=== PATIENT | male | born 2005 | race Caucasian/White ===

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

== ENCOUNTER → 2025-01-11 09:13 | Outpatient (BNV) | payer OTHER, SELFPAY | PROVIDERS: Emergency Provider Emergency Medicine; Visit Provider Radiology Vascular & Interventional Radiology | DX: M79.641 Pain in right hand (principal) | CPT/HCPCS: 73130 ==

== ENCOUNTER 2025-01-11 09:43 | Emergency (ER) | payer OTHER, SELFPAY ==
--- NOTE | ~2025-01-11 | XR_ITS ---
CLINICAL HISTORY: pain 3 view right hand Comparison: None provided Findings: No fractures or dislocations. No significant arthritic change. No erosions. No radiopaque foreign body. IMPRESSION: 1. No acute findings This document has been electronically signed by: Hussain Guardado MD on 01/11/2025 10:30:40
[2025-01-11 09:44] VITALS: BP 128/63; PULSE 66; RESP 16; TEMP 36.4; O2SAT 95; BMI 20.8
--- NOTE | 2025-01-11 10:30 | ED.EXTPRO ---
HPI - Extremity Problem General Chief complaint: Extremity Injury, Upper Stated complaint: r hand pain Time Seen by Provider: 01/11/25 09:56 Source: patient Mode of arrival: ambulatory Limitations: no limitations History of Present Illness ED Provider: JHONNY GOMEZ PA-C HPI Narrative: 19 year old right hand dominant male with pmhx significant for asthma presents to the ED today for evaluation of right hand pain which began after punching a metal pole a week and a half ago. Reports immediate and continued pain/swelling to the middle knuckle. Pain is exacerbated with flexing and extending his digits. Pain is sharp in character and radiates proximally into his wrist. Pain is temporarily relieved with applying ice. He has not trialed any OTC pain medication for his pain. Denies any other injury. Denies numbness/tingling/weakness. Related Data Previous Rx's ?Medication ?Instructions ?Recorded dicyclomine 10 mg capsule 10 mg PO TID PRN abdominal 05/14/22 discomfort #14 caps albuterol sulfate 90 mcg/actuation 2 puff inhalation Q4-6H PRN 07/23/23 aerosol inhaler shortness of breath or wheezing #6.7 grams prednisone 20 mg tablet 20 mg PO DAILY 4 days #4 tabs 07/23/23 prednisone 50 mg tablet 50 mg PO DAILY 5 days #5 tabs 09/02/23 azithromycin 250 mg tablet 250 mg PO DAILY 4 days #4 tabs 05/10/24 cefuroxime axetil 500 mg tablet 500 mg PO BID #14 tabs 05/10/24 albuterol sulfate 90 mcg/actuation 2 puff inhalation Q4-6H PRN 08/30/24 aerosol inhaler shortness of breath or wheezing #8.5 grams benzonatate 100 mg capsule 100 mg PO TID PRN cough #12 caps 08/30/24 prednisone 50 mg tablet 50 mg PO DAILY #4 tabs 08/30/24 Allergies Allergy/AdvReac Type Severity Reaction Status Date / Time nut - unspecified Allergy Anaphylaxis Verified 01/11/25 09:45 Review of Systems Review of Systems: Yes all other systems are reviewed and are negative PMFSH Past Medical History Attestation statement: The following information was validated with the patient. Source: old records reviewed and nursing notes reviewed Medical History Asthma Social History Social History Alcohol intake: never Advance Directives: No Advance Directives Information Provided: No Physical Exam Vital Signs: Vital Signs: Last Vital Signs Temp 97.5 F 01/11/25 09:44 Pulse 66 01/11/25 09:44 Resp 16 01/11/25 09:44 BP 128/63 01/11/25 09:44 Pulse Ox 95 01/11/25 09:44 O2 Del Method Room Air 01/11/25 09:44 BMI result Body Mass Index 20.8 Vital signs stable General: Well appearing, in no acute distress. Skin: Warm, dry, intact. No rashes or lesions. Head: Normocephalic, atraumatic. EENT: Hearing is intact b/l. Conjunctiva clear. Sclera is anicteric. PERRLA. EOM intact. Moist mucous membranes.? Cardiac: Chest wall symmetric. RRR Lungs: Normal respiratory effort without accessory muscle use. CTA bilaterally. Ext: + mild swelling noted over right 3rd MCP, no deformity. No overlying erythema, bruising or wound. Full ROM intact to all digits on right hand. Finger strength intact. Felt Tipping Machine Tender strength intact. Endorses pain on extension and flexion of right MCP. There is positive snuffbox tenderness. FROM intact to right wrist. 2+ radial pulse. Neuro: AOx3. Normal speech. Strength 5/5 intact throughout. Sensation intact to light touch. NV intact distally. Ambulating with steady gait. Course Course Course Narrative: X-rays negative for any acute fracture. He has snuffbox tenderness, concerning for scaphoid fracture given mechanism of injury. Placed in thumb spica splint. Motrin administered in the ED. Advised to follow up with ortho. Referral provided. Patient has remained stable throughout ED visit today. Discussed worrisome signs and symptoms and when to return to the ED. All questions answered at this time. Patient is agreeable with disposition and stable for discharge. Medications Administered Discontinued Medications Generic Name Dose Route Start Last Admin Trade Name Freq PRN Reason Stop Dose Admin Ibuprofen 600 mg 01/11/25 11:06 01/11/25 11:17 Ibuprofen 600 Mg Tablet PO 01/11/25 11:07 600 mg ONCE ONE Administration Medical Decision Making Medical Decision Making MDM Narrative: 19 year old right hand dominant male with pmhx significant for asthma presents to the ED today for evaluation of right hand pain x1.5 weeks. Vitals are stable. He is well-appearing no acute distress. On exam, mild swelling noted over right 3rd MCP, no deformity. No overlying erythema, bruising or wound. Full ROM intact to all digits on right hand. Finger strength intact. Felt Tipping Machine Tender strength intact. Endorses pain on extension and flexion of right MCP. There is positive snuffbox tenderness. FROM intact to right wrist. 2+ radial pulse. Differential diagnosis includes Differential Diagnosis Differential Diagnoses: The differential diagnosis associated with the presentation includes as above. Admission/Observation not indicated Independent Interpretation I performed an independent interpretation of an: Plain X-Ray Interpretation: xr right hand without fracture Radiology Impression Discussion of test interpretation with radiology: I have reviewed the radiologist's reading. Radiologist Impression: Procedure(s): XR hand RT min 3V Accession Number(s): [id number] cc: Physician,None ; Kobe Bryant DO~ CLINICAL HISTORY: pain 3 view right hand Comparison: None provided Findings: No fractures or dislocations. No significant arthritic change. No erosions. No radiopaque foreign body. IMPRESSION: 1. No acute findings This document has been electronically signed by: Hussain Guardado MD on 01/11/2025 10:30:40 Prescription Management I considered prescription management with: Pain Medication Social Determinants Patient?s care significantly limited by Social Determinants of Health including: Other Social Determinant of Health Procedures Orthopedic Splinting/Casting Injury #1: Side: right Upper Extremity Injury Location: wrist and hand Upper Extremity Immobilizer: thumb spica Critical Care Time Critical Care Time Critical Care Time: No Discharge Plan Discharge Clinical Impression: Contusion of right hand Patient Disposition: Home, Self-Care Instructions: Contusion in Adults (ED), Scaphoid Fracture (ED) Additional Instructions: You were evaluated in the ED today for right hand pain after punching a metal pole a week and a half ago. Your x-rays do not show any obvious fracture. Your physical exam is concerning for a possible scaphoid fracture given your tenderness at the base of your right thumb. As a result, you were placed in a thumb spica splint. Please keep this splint applied until you are able to follow up with ortho outpatient. You have been provided with a referral, call them to establish care. They will not call you. You may take Tylenol and Motrin at home as needed for pain/discomfort. Return with any new or worsening symptoms. In the case of an emergency call 911. Prescriptions: No Action dicyclomine 10 mg capsule 10 mg PO TID PRN (Reason: abdominal discomfort) Qty: 14 0RF prednisone 20 mg tablet 20 mg PO DAILY 4 Days Qty: 4 0RF albuterol sulfate 90 mcg/actuation HFA aerosol inhaler 2 puff inhalation Q4-6H PRN (Reason: shortness of breath or wheezing) Qty: 6.7 0RF prednisone 50 mg tablet 50 mg PO DAILY 5 Days Qty: 5 0RF prednisone 50 mg tablet 50 mg PO DAILY Qty: 4 0RF albuterol sulfate 90 mcg/actuation HFA aerosol inhaler 2 puff inhalation Q4-6H PRN (Reason: shortness of breath or wheezing) Qty: 8.5 0RF benzonatate 100 mg capsule 100 mg PO TID PRN (Reason: cough) Qty: 12 0RF azithromycin 250 mg tablet 250 mg PO DAILY 4 Days Qty: 4 0RF Rx Instructions: start on day 2 of therapy cefuroxime axetil 500 mg tablet 500 mg PO BID Qty: 14 0RF Referrals: [facility] [place] [facility] [Provider Group] Referral Note: ?scaphoid fracture Print Language: Kinyarwanda
[2025-01-11 11:43] VITALS: BP 128/63; PULSE 66; RESP 16; TEMP 36.4; O2SAT 95
--- NOTE | 2025-01-11 11:43 | PC.NURSE ---
Wrist splint applied to R hand by automobile spring repairer. CMS intact, pt tolerated well. Pt educated with d/c instructions and education on caring for splint at home.
== END 2025-01-11 11:44 | disposition home or self-care (01) ==
PROVIDERS: Emergency Provider Emergency Medicine
DX: S69.91XA Unspecified injury of right wrist, hand and finger(s), initial encounter (principal); M79.641 Pain in right hand; X58.XXXA Exposure to other specified factors, initial encounter; Y93.9 Activity, unspecified; Y92.9 Unspecified place or not applicable; Y99.8 Other external cause status
CPT/HCPCS: 29130; 73130; 99283; 99284

== ENCOUNTER 2025-01-22 09:09 | Outpatient (REF) | payer OTHER, SELFPAY ==
--- NOTE | ~2025-01-22 | XR_ITS ---
CLINICAL HISTORY: M79.641 - Pain in right hand Exam: PA, lateral, oblique, and scaphoid views of the right wrist. Comparison: January 11, 2025. Findings: Bony alignment about the right wrist is anatomic. No fracture or erosion. Joint spaces are well preserved. Impression: Negative radiographs of the right wrist. This document has been electronically signed by: Mustapha Cazares MD on 01/23/2025 09:39:05
== END 2025-01-22 09:10 | disposition home or self-care (01) ==
LOC: HO.HOSX 09:09
DX: S60.221A Contusion of right hand, initial encounter (principal)
CPT/HCPCS: 29085; 73110

== ENCOUNTER 2025-01-22 13:59 | Outpatient (AMB) | payer OTHER, SELFPAY ==
--- NOTE | 2025-01-22 14:12 | MHC.OFFVIS ---
Vital Signs 01/22/25 14:13 Height 5 ft 10 in Weight 145 lb BMI 20.8 Intake Visit Reasons: FC-Rt hand contusion Intake Note: Ryan is a 19 year old right hand dominant male who presents today for an ED follow up status post Right Hand Injury, DOI: ~12/25/24. Per [facility] ED note, pain began after punching a metal pole. He was placed in a thumb spica splint and advised to take Tylenol or ibuprofen at home as needed for pain. Today, patient complains of pain on the dorsal aspect of the right 3rd MCP. He denies numbness, tingling, finger locking. He denies previous injuries or surgeries to the right hand. Patient works in retail. Allergies nut - unspecified Allergy (Verified 01/22/25 14:17) Anaphylaxis HPI HPI FC-Rt hand contusion: Details: Ryan is a 19 year old right hand dominant male who presents today for an ED follow up status post Right Hand Injury, DOI: ~12/25/24. Per [facility] ED note, pain began after punching a metal pole. He was placed in a thumb spica splint and advised to take Tylenol or ibuprofen at home as needed for pain. Today, patient complains of pain on the dorsal aspect of the right 3rd MCP. Also reports pain at the base of the right thumb He denies numbness, tingling, finger locking. He denies previous injuries or surgeries to the right hand. Patient works in retail. [facility] Medical History Asthma Social History (Updated 01/22/25 @ 14:19 by VANESSA Aquino) Alcohol intake: never Patient Tobacco Use Status: Never used Tobacco Current occupational status: employed and student Current occupation: rt handed, retail store Review of Systems Const All systems reviewed & are unremarkable except as noted in HPI and below Physical Exam Vital Signs: BMI result Body Mass Index 20.8 Extrem Other: Patient is alert, oriented, and in no acute distress. Neuro: Normal sensation of the tips of all digits of the right hand at this time Vascular: Cap refill brisk Pain: Tenderness to palpation of right anatomical snuffbox and scaphoid tubercle No tenderness to palpation of right 3rd MCP joint or 3rd metacarpal ROM: Patient is able to make a closed fist Skin: No lacerations or abrasions. General: No ecchymosis, erythema, or evidence of infection. Psych: Appears grossly normal Affect normal Attitude cooperative Results Reviewed Results Reviewed: X-rays obtained in the office today and independently reviewed by me, Gianni Fonseca PA-C, demonstrate questionable area of lucency on the right scaphoid concerning for potential occult fracture. Assessment & Plan Assessment & Plan (1) Tenderness of anatomical snuffbox: Code(s): M79.643 - Pain in unspecified hand Category: Medical (2) Contusion of right hand: Code(s): S60.221A - Contusion of right hand, initial encounter Category: Medical Plan 1. Anatomical snuffbox tenderness of right hand 2. Right 3rd MCP joint contusion Date of injury approximately 12/25/2024 Patient is educated about this condition Patient is educated about the typical diagnostic and treatment course Out of an abundance of caution for potential right scaphoid fracture, patient is placed into a thumb spica cast Patient is educated on proper cast care and precautions 2 lb weight limit in right hand MRI ordered to assess the health of the right scaphoid Patient understands this is amenable to this plan Follow-up after MRI for results review and discussion of further treatment options if indicated, sooner with any acute concerns Orders: Orders XR wrist RT w scaphoid Today M79.641 - Pain in right hand MR wrist RT wo con Today M79.643 - Pain in unspecified hand Medications: Discontinued dicyclomine Discontinued Reason: Patient Completed Course 10 mg PO TID PRN 14 caps 0RF abdominal discomfort prednisone Discontinued Reason: Patient Completed Course 20 mg PO DAILY 4 days 4 tabs 0RF prednisone Discontinued Reason: Patient Completed Course 50 mg PO DAILY 5 days 5 tabs 0RF azithromycin start on day 2 of therapy Discontinued Reason: Patient Completed Course 250 mg PO DAILY 4 days 4 tabs 0RF cefuroxime axetil Discontinued Reason: Patient Completed Course 500 mg PO BID 14 tabs 0RF benzonatate Discontinued Reason: Patient Completed Course 100 mg PO TID PRN 12 caps 0RF cough prednisone Discontinued Reason: Patient Completed Course 50 mg PO DAILY 4 tabs 0RF Coding Level of Care Code New Pt Level 3 (12171) Diagnoses Tenderness of anatomical snuffbox M79.643 Contusion of right hand S60.221A
[2025-01-22 14:13] VITALS: BMI 20.8
--- OUTSIDE RECORDS SUMMARY | 2025-01-22 17:05 | XMS_ITS | Clinical Summary ---
Author Organization [employer] Address [address] [place] [address] [address] [place] [address] Care Team Providers Care Petroleum Engineer Name Role Phone Janna Sanford MD Primary Care Provider [phone] Allergies Active Allergy Reactions Criticality Noted Date Comments Amphetamine-Dextroamph etamine Hallucinations 12/07/2023 Egg White (Egg Protein) 09/29/2024 Other Reaction(s): peaches Other Other 12/07/2023 Peanut-Containing Drug Products Anaphylaxis High 12/27/2017 Other Reaction(s): Peanut-induced anaphylaxis Prunus Persica 12/27/2017 Medications * This document contains information received from the source organization and may not represent a complete record from that organization. albuterol (Ventolin HFA) 108 (90 Base) MCG/ACT inhalerIndicatio ns:Moderate persistent asthma with acute exacerbation Inhale 2 puffs every 4 (four) hours if needed for wheezing. 18 g 3 4 05/06/20 25 Active EPINEPHrine (Epipen) 0.3 MG/0.3ML injection syringe use for severe allergic reaction 2 Active hydrOXYzine HCl (Atarax) 25 MG tablet TAKE 1/2-1 TABLET BY MOUTH TWICE A DAY NEEDED ANXIETY/INSOMN IA 5 Active Spacer/Aero-Hold ing Chambers (AeroChamber MV) inhalerIndicatio ns:Mild persistent asthma with acute exacerbation Use as instructed 1 each 2 5 Active fluticasone furoate (Arnuity Ellipta) 100 MCG/ACT inhalerIndicatio ns:Mild persistent asthma with acute exacerbation 1 puff BID every day. Rinse mouth with water after use. Do not swallow. 1 each 2 5 Active fluticasone (Flonase) 50 MCG/ACT nasal sprayIndications :Seasonal allergies Administer 1 spray into each nostril Once per day. Shake gently. Before first use, prime pump. After use, clean tip and replace cap. 16 g 2 5 09/28/19 26 Active cetirizine (ZyrTEC) 10 MG tabletIndication s:Mild intermittent asthma without complication 1 tab daily prn allergies. 90 tablet 3 5 Active escitalopram (Lexapro) 10 MG tabletIndication s:Anxiety Take 1 tablet (10 mg) by mouth Once per day. 90 tablet 3 5 Active erythromycin (Romycin) 5 MG/GM ophthalmic ointmentIndicati ons:Hordeolum internum of left lower eyelid Apply to affected eye(s) 4 times daily for 10 days. Apply Amount per Dose: 0.5 inch (~1 cm) per dose. 3.5 g 5 12/27/19 25 Active Problems Problem Noted Date Diagnosed Date Anaphylaxis 12/07/2023 Overview (12/07/2023): peanuts Attention deficit hyperactivity disorder, combin ed type 12/07/2023 Disturbance in sleep behavior 12/07/2023 Learning disorder 12/07/2023 Mild intermittent asthma 12/07/2023 Assessment & Plan (09/29/2024 7:31 PM EDT): Continue SHAWN jamil Present to clinic or walkin within a few days of onset of symptoms of exacerbation Oppositional defiant disorder 12/07/2023 Acute pain of right knee 09/07/2023 Assessment & Plan (09/07/2023 3:31 PM EDT): Patient is here for a sick visit after recently being evaluated at [facility] with c/o new onset of right [...] after testing Anxiety 12/27/2017 06/01/2023 Eczema 12/27/2017 Seasonal allergies 12/27/2017 Resolved Problems Problem [...] more than 3mo, and fu with PCP Learning difficulty 12/27/2017 09/30/19 25 Encounters Date Type Department Care Team Description 12/16/2024 11:00 AM EDT Office Visit [facility] [address] [place] [id number] Priscila Roberson NP Hordeolum internum of left lower eyelid (Primary Dx) 12/16/2024 Travel from Last 3 Months Immunizations Immunization Administration Dates Next Due DTaP 07/07/2006, 6,2005,05/23 DTaP / Hep B / IPV 2005,2005, 006 HPV 9-Valent 06/10/2021,12/27/2017 Hep A, Unspecified 04/19/2007 Hep A, ped/adol, 2 dose 12/27/2017,04/19/2007 Hep B, Adolescent or Pediatric 6,2005,2005,03/25 Hep B, Unspecified 2005 HiB, unspecified 07/07/2006, 6,2005,08/10,2005 Hib (HbOC) 07/07/2006, 6,2005,05/23 IPV 04/26/2016, 7,2005,08/10,2005 Influenza Whole 06/05/2006 Influenza injectable quadriv alent IIV4 with preservative 01/14/2016,01/06/2015 Influenza injectable quadriv alent preservative free 06/10/2021,02/22/2018 Influenza, IIV3, injectable 01/14/2016, 5,04/03/2006 Influenza, Injectable, MDCK, preservative free 01/08/2024 Influenza, injectable, quadr ivalent, preservative free, pediatric 06/05/2006,04/03/2006 MMR 04/03/2006,03/28/2006 MMRV 04/26/2016 Meningococcal MCV4P [id number]-135 06/10/2021,04/26/20 16 Pneumococcal Conjugate PCV 13 04/03/2006 ,2005,2005,05/23 Pneumococcal Conjugate PCV 20 09/27/2024 Pneumococcal Conjugate PCV 7 04/03/2006, 2005,2005,05/23 Tdap 04/26/2016 Varicella 04/19/2007,03/28/2006 Social History Tobacco Use Types Packs/Day Years Used Date Smoking Tobacco: Never Passive Smoke Exposure: Never Smokeless Tobacco: Never Tobacco Cessation:Counseling Given: Not Answered Alcohol Use Standard Drinks/Week Comments Never 0 (1 standard drink = 0.6 oz pur e alcohol) Depression Answer Date Recorded Patient Health Questionnaire-9 Score 3 09/29/2024 Patient Health Questionnaire-9 Score 3 09/29/2024 Last PHQ-9: Questionnaire Data Not on file 0 09/29/2024 Housing Stability Answer Date Recorded What is [...] Answer Date Recorded Patient Health Questionnaire-2 Score 1 09/29/2024 Sex and Gender Information Value Date Recorded Sex Assigned at Male 03/14/2022 10:32 AM EDT Legal Sex Male 10:32 AM EDT Gender Identity Male 03/14/2022 10:32 AM EDT Sexual Orientation Choose not to disclose 2021 10:32 AM EDT Last Filed Vital Signs Vital Sign Reading Time Taken Comments Blood Pressure 118/68 12/16/2024 11:11 AM EDT Pulse 68 12/16/2024 11:11 AM EDT Temperature 36.1 C (96.9 F) 12/16/2024 11:11 AM EDT Respiratory Rate 15 12/16/2024 11:1 1 AM EDT Oxygen Saturation 98% 12/16/2024 11: 11 AM EDT Inhaled Oxygen Concentration - - Weight 68.9 kg (151 lb 14.4 oz) 025 11:11 AM EDT Height 175.3 cm (5' 9 ) 12/16/2024 11:1 1 AM EDT Body Mass Index 22.43 12/16/2024 11:11 AM EDT Plan of Treatment Health Maintenance Due Date Last Done Comments Disability Screening 2005 Fluoride Varnish 2005 Alcohol/Substance Use Screening 2017 Family Planning (PISQ) 2020 Meningococcal B Vaccine (1 of 2 - Standard) 2021 SDOH Screening 06/01/2024 06/01/2023 COVID-19 Vaccine ( - season) 2025 02/13/2021, 12/19/2020 Influenza Vaccine (#1) 2025 4, 06/10/2021, 02/22/2018, Additional history exists Chlamydia and Gonorrhea Screening 09/12/2025 09/12/2024 Depression Screening 09/29/2025 09/29/2024, 09/30/19 Tobacco Screening 12/16/2025 12/16/2024 DTaP/Tdap/Td Vaccines (6 - Td or Tdap) 04/26/2026 04/26/2016, 07/07/2006, 2005, Additional history exists Zoster Vaccines (1 of 2) 2055 RSV Patients and Patients Aged 60 years or older (1 - 1-dose 75+ series) 2080 Hepatitis B Vaccines Completed 2005, 2005, 2005, Additional history exists HIB Vaccines Completed 07/07/2006, 06/16, 04/03/2006, Additional history exists IPV Vaccines Completed 04/26/2016, 06/16, 2005, Additional history exists MMR Vaccines Completed 04/26/2016, 03/16, 03/28/2006 Varicella Vaccines Completed 04/26/2016, 1 06/20/2006, 03/28/2006 Hepatitis A Vaccines Completed 12/27/2017, 04/19/2007, 04/19/2007 HPV Vaccines Completed 06/10/2021, 12/27/2017 Meningococcal Vaccine Completed 06/10/2021, 016 HIV Screening Completed 09/12/2024 Hepatitis C Screening Completed 09/12/2024 Pneumococcal Vaccine: Pediatrics (0 to 5 Years) and At-Risk Patients (6 to 49) Years Completed 09/27/2024, 04/03/2006, 04/03/2006, Additional history exists RSV under 20 months Aged Out No longe r eligible based on patient's age to complete this topic Rotavirus Vaccines Aged Out No longer eligible based on patient's age to complete this topic Procedures Procedure Name Priority Date/Time Associated Diagnosis Comments HEPATITIS C AB W/REFL TO HCV RNA, QN, PCR Routine 09/12/2024 12:14 PM EDT Screening examination for STI HIV 1/2 ANTIGEN/ANTIBODY, FOURTH GENERATION W/RFL Routine 09/12/2024 12:14 PM EDT Screening examination for STI CHLAMYDIA/N. GONORRHOEAE RNA, TMA, UROGENITAL Routine 09/12/2024 12:05 PM EDT Screening examination for STI from Last 3 Months or Most Recently Relevant to Health Maintenance Results * Hepatitis C Antibody with Reflex to HCV, RNA, Quantitative, Real-Time PCR (09/12/2024 12:14 PM EDT) Hepatitis C Antibody Nonreactive Nonreactive [facility] Comment:Antibodies to HCV no t detected; does not exclude early acuteHCV infection. Blood Venous blood specimen / Unknown 09/12/2024 12:14 PM EDT 09/12/2024 1:07 PM EDT Gaurang Robin MD LAB BLOOD ORDERABLES Final Resu lt [facility] [address] [place] [phone] * HIV-1/2 Antigen and Antibodies, Fourth Generation, with Reflexes (09/12/2024 12:14 PM EDT) Pathologist [facility] HIV AB/AG Nonreactive Nonreactive [facility] Comment:HIV-1 p24 Ag and/or HIV-1/HIV-2 Ab not detected.A test result that is nonreactive does not exclude thepossibility of exposure to or infection with HIV-1 and/orHIV-2. Nonreactive results in this assay for individualswith prior exposure to HIV-1 and/or HIV-2 may be due toantigen and antibody levels that are below the limit ofdetection of this assay.The [employer] HIV Ag/Ab Combo assay result andsupplemental assay results should be interpreted inconjunction with the patient's clinical presentation,history and other laboratory results. If the results areinconsistent with clinical evidence, additional testing issuggested to confirm the result. Blood Venous blood specimen / Unknown 09/12/2024 12:14 PM EDT 09/12/2024 1:07 PM EDT Gaurang Robin MD LAB BLOOD ORDERABLES Final Resu lt [facility] [address] [place] [phone] * Chlamydia/N. Gonorrhoeae RNA, TMA, Urogenitial (09/12/2024 12:05 PM EDT) CT PCR NOT DETECTED Not Detect. [facility] Comment:A not detected test result does not exclude the possibilityof infection because test results can be affected byimproper specimen collection, concurrent antibiotic therapy,or the number of organisms in the specimen which may bebelow the sensitivity of the test. As with many diagnostictests, results from the Xpert CT/NG assay should beinterpreted in conjunction with other laboratory andclinical data available to the clinician.Xpert CT/NG performance has not been evaluated in patientsless than 14 years of age. The assay should not be used forthe evaluationof suspected sexual abuse or for other medico-legalindications. Additional testing is recommended in anycircumstance when false positive or false negative resultscould lead to adverse medical, social or psychologicalconsequences. NG PCR NOT DETECTED Not Detect. [facility] Comment:A not detected test result does not exclude the possibilityof infection because test results can be affected byimproper specimen collection, concurrent antibiotic therapy,or the number of organisms in the specimen which may bebelow the sensitivity of the test. As with many diagnostictests, results from the Xpert CT/NG assay should beinterpreted in conjunction with other laboratory andclinical data available to the clinician.Xpert CT/NG performance has not been evaluated in patientsless than 14 years of age. The assay should not be used forthe evaluationof suspected sexual abuse or for other medico-legalindications. Additional testing is recommended in anycircumstance when false positive or false negative resultscould lead to adverse medical, social or psychologicalconsequences. Urine (Urine, Random) 09/12/2024 12:05 PM EDT 09/12/2024 4:09 PM EDT Narrative [facility] - 09/12/2024 6:28 PM EDT Urine Gaurang Robin MD LAB MICROBIOLOGY - GENERAL YUN JAQUEZ Final Result [facility] [address] [place] [phone] from Last 3 Months or Most Recently Relevant to Health Maintenance Insurance * Guarantor: Ryan Harmon Account Type Relation to Patient Date of Phone Billing Address Personal/Family Self [address] [place] [address] [employer] OPEN ACCESS Care Teams Petroleum Engineer Relationship Specialty Start Date End Date Janna Sanford MD [address] [place] [address] PCP - General Family Medicine 01/17/24
--- OUTSIDE RECORDS SUMMARY | 2025-01-22 17:05 | XMS_ITS | Encounter Summary ---
Author Organization [employer] Address [address] [place] [address] [address] [place] [address] Care Team Providers Care Soil Science Technical Officer Name Role Phone Gaurang Robin MD Primary Care Provider [phone] Darya Lucio Primary Care Provider [phone] Janna Sanford MD Primary Care Provider [phone] Encounter Details Date Type Department Care Team (Late st Contact Info) Description 07/14/2022 Orders Only [facility] [address] [place], [place] [phone] Barb Bermudez LPN Social History Tobacco Use Types Packs/Day Years Used Date Smoking Tobacco: Never Assessed Sex and Gender Information Value Date Recorded Sex Assigned at Male 03/14/2022 10:32 AM EDT Legal Sex Male 10:32 AM EDT Gender Identity Male 03/14/2022 10:32 AM EDT Sexual Orientation Choose not to disclose 2021 10:32 AM EDT documented as of this encounter Plan of Treatment Not on file documented as of this encounter Visit Diagnoses Not on filedocumented in this encounter Care Teams Soil Science Technical Officer Relationship Specialty Start Date End Date Gaurang Robin MD [address] [place], [place] [phone] PCP - General Pediatrics 12/27/17 03/02/23 Darya Lucio FNP [address] [place], [place] [phone] PCP - General Family Medicine 03/03/23 01/16/24 Janna Sanford MD [address] [place] [address] PCP - General Family Medicine 01/17/24 documented as of this encounter
== END 2025-01-22 14:58 | disposition home or self-care (01) ==
LOC: HO.HOS 13:59
DX: M79.641 Pain in right hand (principal); S60.221A Contusion of right hand, initial encounter
CPT/HCPCS: 29085; 99203

== ENCOUNTER → 2025-01-22 14:02 | Outpatient (BNV) | payer OTHER, SELFPAY | PROVIDERS: Visit Provider Radiology Diagnostic Radiology | DX: M79.641 Pain in right hand (principal) | CPT/HCPCS: 73110 ==

== ENCOUNTER 2025-01-30 14:56 | Outpatient (REF) | payer OTHER, SELFPAY ==
--- NOTE | ~2025-01-30 | MR_ITS ---
EXAM: MRI of the right wrist without contrast TECHNIQUE: Multiplanar - multisequence imaging through an upper extremity joint was performed without contrast. INDICATION: Lateral right wrist pain near the scaphoid for one month PRIOR: X-ray on 01/22/2025 FINDINGS: Triangular fibrocartilage complex: Triangular fibrocartilage appears intact Intrinsic wrist ligaments: There is mild laxity of the volar bands of the lunotriquetral and scapholunate ligaments. No chronic triquetral ligament appears more lax and scapholunate ligament. However, overall the ligaments appears intact. Extensor compartments: Tendons in the extensor compartment are intact. Flexor tendons: Flexor tendons are intact. Carpal tunnel and Guyon's canal: Carpal tunnel and Guyon's canal structures are unremarkable. Bones/Marrow: Aside from minimal nonspecific cystic change in the palmar side of proximal capitate, bone marrow signal is physiologic. There is no bone marrow edema, visible fracture line, or other abnormality. Soft tissues: There is no muscle edema or fatty replacement. There is no mass or fluid collection. MR/MR wrist RT wo con IMPRESSION: Suspected grade 1 sprain of the volar band of scapholunate ligament and grade 2 sprain of the volar band lunotriquetral ligament. Electronically signed by: Jimmie Govea MD 01/30/2025 04:03 PM EDT
--- OUTSIDE RECORDS SUMMARY | 2025-01-30 16:38 | XMS_ITS | Encounter Summary ---
Author Organization [employer] Address [address] [place] [address] [address] [place] [address] Care Team Providers Care Relief Operator Name Role Phone Gaurang Robin MD Primary Care Provider [phone] Darya Lucio Primary Care Provider [phone] Janna Sanford MD Primary Care Provider [phone] Encounter Details Date Type Department Care Team (Late st Contact Info) Description 07/14/2022 Orders Only [facility] [address] [place], [place] [phone] Barb Bermudez LPN Social History Tobacco Use [...] on filedocumented in this encounter Care Teams Relief Operator Relationship Specialty Start Date End Date Gaurang Robin MD [address] [place], [place] [phone] PCP - General Pediatrics 12/27/17 03/02/23 Darya Lucio FNP [address] [place], [place] [phone] PCP - General Family Medicine 03/03/23 01/16/24 Janna Sanford MD [address] [place] [address] PCP - General Family Medicine 01/17/24 documented as of this encounter
--- OUTSIDE RECORDS SUMMARY | 2025-01-30 16:38 | XMS_ITS | Clinical Summary ---
Author Organization [employer] Address [address] [place] [address] [address] [place] [address] Care Team Providers Care Aircraft Accessories Mechanic Name Role Phone Janna Sanford MD Primary Care Provider [phone] Allergies Active Allergy Reactions Criticality Noted Date [...] albuterol (Ventolin HFA) 108 (90 Base) MCG/ACT inhalerIndication s:Moderate persistent asthma with acute exacerbation Inhale 2 puffs every 4 (four) hours if needed for wheezing. 18 g 3 4 05/06/20 25 Active EPINEPHrine (Epipen) 0.3 MG/0.3ML injection syringe use for severe allergic reaction 2 Active hydrOXYzine HCl (Atarax) 25 MG tablet TAKE 1/2-1 TABLET BY MOUTH TWICE A DAY NEEDED ANXIETY/INSOMN IA 5 Active Spacer/Aero-Holdi ng Chambers (AeroChamber MV) inhalerIndication s:Mild persistent asthma with acute exacerbation Use as instructed 1 each 2 5 Active fluticasone furoate (Arnuity Ellipta) 100 MCG/ACT inhalerIndication s:Mild persistent asthma with acute exacerbation 1 puff BID every day. Rinse mouth with water after use. Do not swallow. 1 each 2 5 Active fluticasone (Flonase) 50 MCG/ACT nasal sprayIndications: Seasonal allergies Administer 1 spray into each nostril Once per day. Shake gently. Before first use, prime pump. After use, clean tip and replace cap. 16 g 2 5 09/28/19 26 Active cetirizine (ZyrTEC) 10 MG tabletIndications :Mild intermittent asthma without complication 1 tab daily prn allergies. 90 tablet 3 5 Active escitalopram (Lexapro) 10 MG tabletIndications :Anxiety Take 1 tablet (10 mg) by mouth Once per day. 90 tablet 3 5 Active Active Problems Problem Noted Date Diagnosed Date Anaphylaxis 12/07/2023 Overview (12/07/2023): peanuts Attention deficit hyperactivity disorder, combin ed type 12/07/2023 Disturbance in sleep behavior 12/07/2023 Learning disorder 12/07/2023 Mild intermittent asthma 12/07/2023 Assessment & Plan (09/29/2024 7:31 PM EDT): Continue SHAWN prn Present to clinic or walkin within a few days of onset of symptoms of exacerbation Oppositional defiant disorder 12/07/2023 Acute pain of right knee 09/07/2023 Assessment & Plan (09/07/2023 3:31 PM EDT): Patient is here for a sick visit after recently being evaluated at [facility] with c/o new onset of right [...] Description 12/16/2024 11:00 AM EDT Office Visit [facility] [place] [address] EmilymPriscila, CERTIFIED COURT/MEDICAL INTERPRETER Hordeolum internum of left lower eyelid (Primary [...] 2021 SDOH Screening 06/01/2024 06/01/2023 COVID-19 Vaccine (3 - season) 2025 02/13/2021, 12/19/2020 Influenza Vaccine (#1) 2025 , 06/10/2021, 02/22/2018, Additional history exists Chlamydia and Gonorrhea Screening 09/12/2025 09/12/2024 Depression Screening 09/29/2025 09/29/2024, 09/30/19 25 Tobacco Screening 12/16/2025 12/16/2024 DTaP/Tdap/Td Vaccines (6 [...] PM EDT) Hepatitis C Antibody Nonreactive Nonreactive [facility] Comment:Antibodies to HCV no t detected; does not exclude early acuteHCV infection. Blood Venous blood specimen / Unknown 09/12/2024 12:14 PM EDT 09/12/2024 1:07 PM EDT Gaurang Robin MD LAB BLOOD ORDERABLES Final Resu lt [facility] [address] [place] [phone] * HIV-1/2 Antigen and Antibodies, Fourth Generation, with Reflexes (09/12/2024 12:14 PM EDT) HIV AB/AG Nonreactive Nonreactive [facility] Comment:HIV-1 p24 Ag and/or HIV-1/HIV-2 Ab not detected.A test result that is nonreactive does not exclude thepossibility of exposure to or infection with HIV-1 and/orHIV-2. Nonreactive results in this assay for individualswith prior exposure to HIV-1 and/or HIV-2 may be due toantigen and antibody levels that are below the limit ofdetection of this assay.The [employer] HIV Ag/Ab Combo assay result andsupplemental assay results should be interpreted inconjunction with the patient's clinical presentation,history and other laboratory results. If the results areinconsistent with clinical evidence, additional testing issuggested to confirm the result. Blood Venous blood specimen / Unknown 09/12/2024 12:14 PM EDT 09/12/2024 1:07 PM EDT Gaurang Robin MD LAB BLOOD ORDERABLES Final Resu lt [facility] [address] [place] [phone] [phone] * Chlamydia/N. Gonorrhoeae RNA, TMA, Urogenitial (09/12/2024 12:05 PM EDT) CT PCR NOT DETECTED Not Detect. [facility] Comment:A not detected test result [...] psychologicalconsequences. NG PCR NOT DETECTED Not Detect. [facility] Comment:A not detected test result [...] PM EDT 09/12/2024 4:09 PM EDT Narrative [facility] - 09/12/2024 6:28 PM EDT Urine Gaurang Robin MD LAB MICROBIOLOGY - GENERAL YUN JAQUEZ Final Result [facility] [address] [place] [address] [place] [phone] from Last 3 Months or Most Recently Relevant to Health Maintenance Insurance * Guarantor: Ryan Harmon Account Type Relation to Patient Date of Phone Billing Address Personal/Family Self [address] [place] [address] [employer] OPEN ACCESS Care Teams Aircraft Accessories Mechanic Relationship Specialty Start Date End Date Janna Sanford MD [address] [place] [id number] PCP - General Family Medicine 01/17/24
== END 2025-01-30 14:57 | disposition home or self-care (01) ==
LOC: HO.MRI 14:56
DX: M79.641 Pain in right hand (principal)
CPT/HCPCS: 73221

== ENCOUNTER → 2025-01-30 15:08 | Outpatient (BNV) | payer OTHER, SELFPAY | PROVIDERS: Visit Provider Radiology Diagnostic Radiology | DX: M79.641 Pain in right hand (principal) | CPT/HCPCS: 73221 ==

== ENCOUNTER 2025-02-05 14:54 | Outpatient (AMB) | payer OTHER, SELFPAY ==
--- NOTE | 2025-02-05 15:24 | MHC.OFFVIS ---
Vital Signs 02/05/25 15:26 Height 5 ft 10 in Weight 145 lb BMI 20.8 Intake Visit Reasons: MR review wrist RT Intake Note: Ryan is a 19 year old right hand dominant male who presents today for follow up status post Right 3rd MCP Joint Contusion, DOI: ~12/25/24. Patient was placed in a thumb spica cast on 01/22/25 due to possible scaphoid fracture. MRI was ordered to assess anatomical snuffbox tenderness. No questions or concerns today. Allergies nut - unspecified Allergy (Verified 02/05/25 15:24) Anaphylaxis HPI HPI MR review wrist RT: Details: Ryan is a 19 year old right hand dominant young man who presents for a right wrist MRI review. He injured his hand on 12/25/24 after punching a metal pole, and there was some concern about a possible occult scaphoid fracture.. He says he is doing well overall but still has some soreness. He says he left his splint at home and admits he has not been great at wearing it. He says he is currently attending school for General studies. He says he likes to box for exercise but he has not been doing any activities since his injury. [facility] Medical History Asthma Social History (Updated 01/22/25 @ 14:19 by VANESSA Aquino) Alcohol intake: never Patient Tobacco Use Status: Never used Tobacco Current occupational status: employed and student Current occupation: rt handed, retail store Review of Systems Const All systems reviewed & are unremarkable except as noted in HPI and below Physical Exam Vital Signs: BMI result Body Mass Index 20.8 Const General: cooperative, healthy appearing and no acute distress Orientation/consciousness: patient oriented x3 HEENT Head: Yes normocephalic and Yes atraumatic Eyes EOM: EOMs intact bilaterally Resp Effort & Inspection: normal respiratory effort and able to speak in complete sentences Cardio Jugular venous distension: no JVD Skin General skin exam: turgor normal Rashes: no rashes Neuro General: patient oriented x3 Extrem Other: Evaluation of Right Upper Extremity: The patient is alert, oriented, and in no acute distress Neuro: Median, Ulnar, Radial nerves motor and sensory intact and sensation is normal to the tips of all digits Vascular: Cap refill brisk ROM: He can make a fist and extend all his digits No locking or catching Skin: No lacerations or abrasions. General: No Ecchymosis. No Erythema or evidence of infection. Mild tenderness over the scaphoid tubercle No snuffbox tenderness Mild tenderness dorsal aspect of the wrist Right wrist MRI: IMPRESSION: Suspected grade 1 sprain of the volar band of scapholunate ligament and grade 2 sprain of the volar band lunotriquetral ligament. Electronically signed by: Jimmie Govea MD 01/30/2025 Dr. Wilkinson addendum: No evidence of scaphoid or other fracture seen on imaging Psych Appearance: grossly normal Affect: normal affect Attitude: cooperative Assessment & Plan Assessment & Plan (1) Right wrist sprain: Code(s): S63.501A - Unspecified sprain of right wrist, initial encounter Category: Medical Plan Assessment & Plan: 1. Right wrist sprain Seen on MRI After punching a pole, DOI: 12/25/24 I educated him about this condition I discussed treatment options I recommend activity modification, and he is in agreement He should continue to wear his splint when out of the house for daily activities for the next 4 weeks. He can remove this at home at rest I discussed activity modification, he should use his hand for more normal daily activities and increase his activity level as tolerated over the next month He should work on ROM exercises at home He should avoid any impact activities or falls for the next 6 weeks. This includes any Boxing practice. He will follow up in 4 weeks to see how he is doing and hopefully advance activities. No radiographs are necessary 2. Right 3rd MCP joint contusion After punching a pole, DOI: 12/25/24 Resolved 3. Right snuffbox tenderness MRI negative for scaphoid fracture Resolved Scribed for Ann Wilkinson MD by Robert Duff, medical concierge, on 02/05/25 at 3:45 PM, EST. Coding Level of Care Code Est Pt Level 4 (49885) Diagnoses Right wrist sprain S63.501A
[2025-02-05 15:26] VITALS: BMI 20.8
--- OUTSIDE RECORDS SUMMARY | 2025-02-05 17:23 | XMS_ITS | Encounter Summary ---
Author Organization [facility] Address [address] [place] [address] [address] [place] [address] Care Team Providers Care Police Guard Name Role Phone Gaurang Robin MD Primary Care Provider [phone] Darya Lucio Primary Care Provider [phone] Janna Snaford MD Primary Care Provider [phone] Encounter Details Date Type Department Care Team (Late st Contact Info) Description 07/14/2022 Orders Only [facility] [address] [place], [place] [id number] Barb Bermudez LPN Social History Tobacco Use [...] on filedocumented in this encounter Care Teams Police Guard Relationship Specialty Start Date End Date Gaurang Robin MD [address] [place], [place] [phone] PCP - General Pediatrics 12/27/17 03/02/23 Darya Lucio FNP [address] [place], [place] [phone] PCP - General Family Medicine 03/03/23 01/16/24 Janna Sanford MD [address] [place] [address] PCP - General Family Medicine 01/17/24 documented as of this encounter
--- OUTSIDE RECORDS SUMMARY | 2025-02-05 17:23 | XMS_ITS | Clinical Summary ---
Author Organization [facility] Address [address] [place] [address] [address] [place] [address] Care Team Providers Care Chest Painting Leader Name Role Phone Janna Sanford MD Primary Care Provider [phone] Allergies Active Allergy Reactions Criticality Noted Date [...] sick visit after recently being evaluated at [facility] with c/o new onset of right [...] Description 12/16/2024 11:00 AM EDT Office Visit [facility] [place] [address] EmilymPriscila, MANAGER INTERVENTIONAL [employer] internum of left lower eyelid (Primary [...] PM EDT) Hepatitis C Antibody Nonreactive Nonreactive [facility] Comment:Antibodies to HCV no t detected; does not exclude early acuteHCV infection. Blood Venous blood specimen / Unknown 09/12/2024 12:14 PM EDT 09/12/2024 1:07 PM EDT Gaurang Robin MD LAB BLOOD ORDERABLES Final Resu lt [facility] [address] [place] [address] [phone] * HIV-1/2 Antigen and Antibodies, Fourth Generation, with Reflexes (09/12/2024 12:14 PM EDT) HIV AB/AG Nonreactive Nonreactive [facility] Comment:HIV-1 p24 Ag and/or HIV-1/HIV-2 Ab not detected.A test result that is nonreactive does not exclude thepossibility of exposure to or infection with HIV-1 and/orHIV-2. Nonreactive results in this assay for individualswith prior exposure to HIV-1 and/or HIV-2 may be due toantigen and antibody levels that are below the limit ofdetection of this assay.[facility] [place] HIV Ag/Ab Combo assay result andsupplemental assay results should be interpreted inconjunction with the patient's clinical presentation,history and other laboratory results. If the results areinconsistent with clinical evidence, additional testing issuggested to confirm the result. Blood Venous blood specimen / Unknown 09/12/2024 12:14 PM EDT 09/12/2024 1:07 PM EDT Gaurang Robin MD LAB BLOOD ORDERABLES Final Resu lt [facility] [address] [place] [address] [phone] * Chlamydia/N. Gonorrhoeae RNA, TMA, Urogenitial (09/12/2024 12:05 PM EDT) CT PCR NOT DETECTED Not Detect. [facility] Comment:A not detected test result does [...] psychologicalconsequences. NG PCR NOT DETECTED Not Detect. [facility] Comment:A not detected test result does [...] PM EDT 09/12/2024 4:09 PM EDT Narrative [facility] - 09/12/2024 6:28 PM EDT Urine Gaurang Robin MD LAB MICROBIOLOGY - GENERAL YUN JAQUEZ Final Result [facility] [address] [place] [address] [place] [phone] from Last 3 Months or Most Recently Relevant to Health Maintenance Insurance * Guarantor: Ryan Harmon Account Type Relation to Patient Date of Phone Billing Address Personal/Family Self [address] [place] [address] [employer] OPEN [employer]ESS Care Teams Chest Painting Leader Relationship Specialty Start Date End Date Janna Sanford MD [address] [place] [phone] PCP - General Family Medicine 01/17/24
== END 2025-02-05 15:54 | disposition home or self-care (01) ==
LOC: HO.HOS 14:54
PROVIDERS: Visit Provider Orthopaedic Surgery
DX: S63.501A Unspecified sprain of right wrist, initial encounter (principal)
CPT/HCPCS: 99214